=== PATIENT | male | born 2000 | race Hispanic/Latino ===

== ENCOUNTER 2023-08-04 05:35 | Emergency (ER) | payer OTHER ==
[~2023-08-04] VITALS: Ht 167.6 cm; Wt 72.6 kg
[2023-08-04] MEDS: LIDOCAINE HCL 1% 20 ML VIAL INJ SCH (06:08)
[2023-08-04] MEDS ORDERED: IBUP-2070 PO (07:07)
[2023-08-04] MEDS ORDERED: SULF1TAB42 PO (07:07)
[2023-08-04] MEDS: LIDOCAINE HCL 1% 20 ML VIAL ONE (07:28)
[2023-08-04] MEDS: TETANUS/DIPHTHERIA TOXOID [ADULT] 0.5 ML VIAL IM ONE (07:50)
[2023-08-04 10:12] VITALS: BP 101/56; PULSE 83; RESP 17; O2SAT 98
== END 2023-08-04 10:29 | disposition home or self-care (01) ==
LOC: EDH 05:35
DX: S01.81XA Laceration without foreign body of other part of head, initial encounter (principal); Z79.899 Other long term (current) drug therapy; W18.39XA Other fall on same level, initial encounter; Y93.01 Activity, walking, marching and hiking; Y92.89 Other specified places as the place of occurrence of the external cause; Y99.8 Other external cause status
CPT/HCPCS: 12013; 70450; 71045; 71100; 72125; 90471; 90714